=== PATIENT | male | born 1990 | race Caucasian/White ===

== ENCOUNTER 2019-06-15 11:02 | Emergency (ER) | payer OTHER ==
[~2019-06-15] VITALS: Ht 165.1 cm; Wt 68.0 kg
== END 2019-06-15 12:20 | disposition home or self-care (01) ==
LOC: ER 11:02
DX: S61.512A Laceration without foreign body of left wrist, initial encounter (principal); W26.0XXA Contact with knife, initial encounter; F17.210 Nicotine dependence, cigarettes, uncomplicated
CPT/HCPCS: 12001; 90471; 90714; 99282-25